=== PATIENT | male | born 1970 | race Caucasian/White ===

== ENCOUNTER 2017-04-26 22:53 | Observation (INO) | payer OTHER ==
[~2017-04-26] VITALS: Ht 182.9 cm; Wt 115.0 kg
[~2017-04-26 22:53] MED LIST: ALBU8I INH; HYCO5UDC PO; ZOFR4TAB3 PO
[2017-04-26 23:09] VITALS: BP 140/85; PULSE 98; RESP 19; TEMP 98.3; O2SAT 96
[2017-04-26] MEDS ORDERED: SODIUM CHLOR 0.9% 1000 ML INJ 1,000 ML IV ONE (23:09)
[2017-04-26 23:15] VITALS: RESP 19; O2SAT 96
[2017-04-26] MEDS ORDERED: SODIUM CHLORIDE 0.9% FLUSH 10 ML FLUSH IVF PRN (23:15)
[2017-04-26] MEDS ORDERED: LISI-515 PO (23:19)
[2017-04-26] MEDS ORDERED: CLON1TAB PO (23:19)
[2017-04-26] MEDS ORDERED: AMLO5TAB2 PO (23:19)
[2017-04-26 23:41] LABS: AUTOMATED NEUTROPHIL # 5.8 TH/MM3 (1.8-7.7); BASOPHIL # 0.1 TH/MM3 (0-0.2); BASOPHIL % 0.7 % (0.0-2.0); EOSINOPHIL # 0.3 TH/MM3 (0-0.4); HEMATOCRIT 45.3 % (39.0-51.0); HEMOGLOBIN 15.9 GM/DL (13.0-17.0); LYMPH % 33.6 % (9.0-44.0); LYMPHOCYTE # 3.4 TH/MM3 (1.0-4.8); MEAN CELL VOLUME 89.3 FL (80.0-100.0); MEAN CORPUSCULAR HEMOGLOBIN 31.3 PG (27.0-34.0); MEAN CORPUSCULAR HGB CONC 35.1 % (32.0-36.0); MEAN PLATELET VOLUME 8.9 FL (7.0-11.0); MONO % 6.5 % (0.0-8.0); MONOCYTE # 0.7 TH/MM3 (0-0.9); NEUT % 56.2 % (16.0-70.0); PLATELET COUNT 189 TH/MM3 (150-450); RED BLOOD COUNT 5.08 MIL/MM3 (4.50-5.90); WHITE BLOOD COUNT 10.3 TH/MM3 (4.0-11.0)
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
[2017-04-27 00:02] LABS: ALBUMIN 3.9 GM/DL (3.4-5.0); ALT (GPT) 49 U/L (12-78); AST (GOT) 43 U/L (15-37); BICARBONATE 26.9 MEQ/L (21.0-32.0); BLOOD UREA NITROGEN 6 MG/DL (7-18); CALCIUM 8.7 MG/DL (8.5-10.1); CHLORIDE 108 MEQ/L (98-107); CREATININE 0.92 MG/DL (0.60-1.30); GLOMERULAR FILTRATION RATE 89 ML/MIN (>89); GLUCOSE,RANDOM 103 MG/DL (74-106); SODIUM (NA) 143 MEQ/L (136-145)
[2017-04-27 00:04] LABS: ALKALINE PHOSPHATASE 93 U/L (45-117); TOTAL BILIRUBIN ADULT 0.4 MG/DL (0.2-1.0); TOTAL PROTEIN 7.6 GM/DL (6.4-8.2)
[2017-04-27 00:11] VITALS: BP 133/82; PULSE 104; RESP 16; O2SAT 95
[2017-04-27 00:13] LABS: ACETAMINOPHEN LESS THAN 2.0 MCG/ML (10.0-30.0)
[2017-04-27] MEDS ORDERED: ACTIVATED CHARCOAL LIQUID 25 GM/120 ML BTL PO/NG ONE (00:15)
[2017-04-27] MEDS ORDERED: SODIUM CHLORIDE 0.9% FLUSH 10 ML FLUSH IVF PRN (00:15)
[2017-04-27] MEDS ORDERED: LORazepam 2 MG/ML VIAL IV PUSH ONE (00:30)
[2017-04-27] MEDS ORDERED: SODIUM CHLOR 0.9% 1000 ML INJ 1,000 ML IV SCH (01:08)
[2017-04-27 01:10] VITALS: BP 127/78; PULSE 101; RESP 16; O2SAT 95
[2017-04-27] MEDS ORDERED: ONDANSETRON HCL 4 MG/2 ML VIAL IVP PRN (01:15)
[2017-04-27] MEDS ORDERED: SENNOSIDES 8.6 MG TAB PO PRN (01:15)
[2017-04-27] MEDS ORDERED: MAGNESIUM HYDROXIDE SUSP 30 ML CUP PO PRN (01:15)
[2017-04-27] MEDS ORDERED: ACETAMINOPHEN 325 MG TAB PO PRN (01:15)
[2017-04-27] MEDS ORDERED: LACTULOSE SYRUP 20 GM/30 ML CUP PO PRN (01:15)
[2017-04-27] MEDS ORDERED: SODIUM CHLORIDE 0.9% FLUSH 10 ML FLUSH IV FLUSH PRN (01:15)
[2017-04-27] MEDS ORDERED: BISACODYL 10 MG SUPP RECTAL PRN (01:15)
--- NOTE | 2017-04-27 02:58 | RADRPT ---
EXAM DATE/TIME: 04/27/2017 02:42 [facility] COMPARISON: No previous studies available for comparison. INDICATIONS : Altered mental status. RADIATION DOSE: 39.32 CTDIvol (mGy) MEDICAL HISTORY : Non-responsive. SURGICAL HISTORY : Non-responsive. ENCOUNTER: Initial ACUITY: 1 day PAIN SCALE: Non-responsive LOCATION: cranial TECHNIQUE: Multiple contiguous axial images were obtained of the head. Using automated exposure control and adj ustment of the mA and/or kV according to patient size, radiation dose was kept as low as reasonably a chievable to obtain optimal diagnostic quality images. DICOM format image data is available electro nically for review and comparison. FINDINGS: CEREBRUM: The ventricles are normal for age. No evidence of midline shift, mass lesion, hemorrhage or acute in farction. No extra-axial fluid collections are seen. POSTERIOR FOSSA: The cerebellum and brainstem are intact. The 4th ventricle is midline. The cerebellopontine angle i s unremarkable. EXTRACRANIAL: The visualized portion of the orbits is intact. Mucosal thickening in the paranasal sinuses. SKULL: The calvaria is intact. No evidence of skull fracture. Small left parietal scalp laceration. CONCLUSION: 1. No acute intracranial abnormalities. Small left parietal scalp hematoma. Pansinus mucosal thickeni ng. Pelon Tello MD on April 27, 2017 at 2:54 Board Certified Radiologist. This report was verified electronically.
--- NOTE | 2017-04-27 04:08 | HHI.HP ---
[facility] Unknown Admission Diagnosis intentional overdose/BA Diagnoses: (1) Intentional overdose of drug in tablet form Diagnosis: Principal (2) Alcohol intoxication Diagnosis: Principal (3) Cocaine abuse Diagnosis: Principal Travel History International Travel<30 Days: No Contact w/Intl Traveler <30 Da: No Traveled to Known Affected Are: No History of Present Illness This is a 46-year-old male with a PMH of Anxiety, Depression, Tobacco Abuse and Cocaine Abuse was brought to the ER by Police Department under Arguello Act for intentional overdose. Per records, pt had reported taking over 50 pills of a combination of Lisinopril 20mg, Norvasc 5mg and Klonopin 1mg, unknown quantities of each. On arrival, pt significantly agitated/combative, requiring restraints. BP 140/85, HR 98, O2 sat 96% on RA, Afebrile. CBC unremarkable. Chemistry essentially unremarkable. Urine Drug Screen positive for Cocaine. Alcohol 150. CT Head with no acute findings, small left parietal scalp hematoma. Poison control contacted, recommended observation in light of overdose. Review of Systems Except as stated in HPI: all other systems reviewed are Neg ROS: Unable to obtain secondary to sedation Past Family Social History Past Medical History PMH: Anxiety, Depression, Tobacco Abuse and Cocaine Abuse Past Surgical History PAST SURGICAL HISTORY: Dental Surgery, Abdominal Surgery Allergies: Coded Allergies: codeine (Unverified Allergy, Severe, Anaphylaxis, 04/26/17) Family History PAST FAMILY HISTORY: Reviewed. No h/o DM or CAD Social History PAST SOCIAL HISTORY: Positive for alcohol, unable to quantify. Smokes 1ppd. + Cocaine/Marijuana. Physical Exam Vital Signs Vital Signs Date Time Temp Pulse Resp B/P (MAP) Pulse Ox O2 Delivery O2 Flow Rate FiO2 04/27/17 01:10 101 16 127/78 (94) 95 04/27/17 00:11 104 16 133/82 (99) 95 04/26/17 23:15 19 96 Room Air 04/26/17 23:09 98.3 98 19 140/85 (103) 96 Physical Exam PE: GENERAL: Middle-aged white male in mild to moderate distress, in restraints, writhing around HEENT: PERRLA, EOMI. No scleral icterus or conjunctival pallor. No lid lag or facial droop. CARDIOVASCULAR: Regular rate and rhythm. No obvious murmurs to auscultation. No chest tenderness to palpation. RESPIRATORY: No obvious rhonchi or wheezing. Clear to auscultation. Breath sounds equal bilaterally. GASTROINTESTINAL: Abdomen soft, non-tender, nondistended. BS normal. MUSCULOSKELETAL: Extremities without clubbing, cyanosis, or edema. No obvious deformities. NEUROLOGICAL: Lethargic due to sedation, agitated when aroused. No focal neurologic deficits. Moving both upper and lower extremities spontaneously. Laboratory Laboratory Tests Test 04/26/17 23:15 04/26/17 23:25 Urine Opiates Screen NEG Urine Barbiturates Screen NEG Urine Amphetamines Screen NEG Urine Benzodiazepines Screen NEG Urine Cocaine Screen POS Urine Cannabinoids Screen NEG White Blood Count 10.3 Red Blood Count 5.08 Hemoglobin 15.9 Hematocrit 45.3 Mean Corpuscular Volume 89.3 Mean Corpuscular Hemoglobin 31.3 Mean Corpuscular Hemoglobin Concent 35.1 Red Cell Distribution Width 14.0 Platelet Count 189 Mean Platelet Volume 8.9 Neutrophils (%) (Auto) 56.2 Lymphocytes (%) (Auto) 33.6 Monocytes (%) (Auto) 6.5 Eosinophils (%) (Auto) 3.0 Basophils (%) (Auto) 0.7 Neutrophils # (Auto) 5.8 Lymphocytes # (Auto) 3.4 Monocytes # (Auto) 0.7 Eosinophils # (Auto) 0.3 Basophils # (Auto) 0.1 CBC Comment DIFF FINAL Differential Comment Blood Urea Nitrogen 6 Creatinine 0.92 Random Glucose 103 Total Protein 7.6 Albumin 3.9 Calcium Level 8.7 Alkaline Phosphatase 93 Aspartate Amino Transf (AST/SGOT) 43 Alanine Aminotransferase (ALT/SGPT) 49 Total Bilirubin 0.4 Sodium Level 143 Potassium Level 3.6 Chloride Level 108 Carbon Dioxide Level 26.9 Anion Gap 8 Estimat Glomerular Filtration Rate 89 Salicylates Level LESS THAN 1.7 Acetaminophen Level LESS THAN 2.0 Ethyl Alcohol Level 150 Result Diagram: 04/26/17232404/26/172324 Caprini VTE Risk Assessment Caprini VTE Risk Assessment: No/Low Risk (score <= 1) Caprini Risk Assessment Model Point Value = 1 Point Value = 2 Point Value = 3 Point Value = 5 Age 41-60 Minor surgery BMI > 25 kg/m2 Swollen legs Varicose veins or History of unexplained or recurrent spontaneous Oral contraceptives or hormone replacement Sepsis (< 1 month) Serious lung disease, including pneumonia (< 1 month) Abnormal pulmonary function Acute myocardial infarction Congestive heart failure (< 1 month) History of inflammatory bowel disease Medical patient at bed rest Age 61-74 Arthroscopic surgery Major open surgery (> 45 min) Laparoscopic surgery (> 45 min) Malignancy Confined to bed (> 72 hours) Immobilizing plaster cast Central venous access Age >= 75 History of VTE Family history of VTE Factor V Leiden Prothrombin [id number] Lupus anticoagulant Anticardiolipin antibodies Elevated serum homocysteine Heparin-induced thrombocytopenia Other congenital or acquired thrombophilia Stroke (< 1 month) Elective arthroplasty Hip, pelvis, or leg fracture Acute spinal cord injury (< 1 month) Prophylaxis Regimen Total Risk Factor Score Risk Level Prophylaxis Regimen 0-1 Low Early ambulation 2 Moderate Order ONE of the following: *Sequential Compression Device (SCD) *Heparin 5000 units SQ BID 3-4 Higher Order ONE of the following medications: *Heparin 5000 units SQ TID *Enoxaparin/Lovenox 40 mg SQ daily (WT < 150 kg, CrCl > 30 mL/min) *Enoxaparin/Lovenox 30 mg SQ daily (WT < 150 kg, CrCl > 10-29 mL/min) *Enoxaparin/Lovenox 30 mg SQ BID (WT < 150 kg, CrCl > 30 mL/min) AND/OR *Sequential Compression Device (SCD) 5 or more Highest Order ONE of the following medications: *Heparin 5000 units SQ TID (Preferred with Epidurals) *Enoxaparin/Lovenox 40 mg SQ daily (WT < 150 kg, CrCl > 30 mL/min) *Enoxaparin/Lovenox 30 mg SQ daily (WT < 150 kg, CrCl > 10-29 mL/min) *Enoxaparin/Lovenox 30 mg SQ BID (WT < 150 kg, CrCl > 30 mL/min) AND *Sequential Compression Device (SCD) Assessment and Plan Problem List: (1) Intentional overdose of drug in tablet form ICD Code: T50.902A - Poisoning by unspecified drugs, medicaments and biological substances, intentional self-harm, initialencounter Status: Acute (2) Alcohol intoxication ICD Code: F10.929 - Alcohol use, unspecified with intoxication, unspecified (3) Cocaine abuse ICD Code: F14.10 - Cocaine abuse, uncomplicated Assessment and Plan A/P: 1. Intentional Overdose: reports taking over 50 pills, combination of Lisinopril 20mg, Norvasc 5mg and Klonopin 1mg, exact quantities of each unknown. +Suicide Attempt, currently under Arguello Act. Consult Psych. Admit for Observation, telemetry to eval for possible arrhythmia. IVF for hydration. CT Head w/ no acute findings, images reviewed by me. 2. Alcohol Intoxication: Alcohol 150, daily intake unknown. Will monitor closely for possible withdrawal. IVF for hydration 3. Cocaine Abuse: Ativan prn if needed. 4. DVT Prophylaxis: SCD/Teds. 5. Social work for DC planning as needed. 6. Case discussed at length with ER physician, labs/imaging/records reviewed by me. Amanda Rai MD Apr 27, 2017 04:07
[2017-04-27 04:40] VITALS: BP 102/62; PULSE 89; RESP 20; TEMP 97.6; O2SAT 92
[2017-04-27 08:00] VITALS: BP 105/65; PULSE 86; RESP 18; TEMP 97.9; O2SAT 93
[2017-04-27] MEDS ORDERED: SODIUM CHLORIDE 0.9% FLUSH 10 ML FLUSH IV FLUSH SCH (09:00)
[2017-04-27] MEDS ORDERED: DOCUSATE SODIUM 50 MG/SENNA 8.6 MG TAB PO SCH (09:00)
--- NOTE | 2017-04-27 10:55 | PD.PSY.CON ---
Provisional Diagnosis Admission Date Apr 27, 2017 at 00:41 Chandler I. Major depressive disorder, recurrent, severe, history of schizophrenia, alcohol and cocaine use disorder, rule out substance-induced mood disorder Chandler II. Deferred Chandler III. No significant medical history History of Present Illness Service Psychiatry Consult Requested By ER team Reason for Consult Suicidal attempts, Arguello act Primary Care Physician Unknown HPI The patient is a 46-year-old man, domiciled with parents in [place], single, employed in construction, psychiatric history of depression, anxiety, alcohol and cocaine use disorder, previous psychiatric hospitalizations , multiple ER contacts related with substance issues, medical history of hypertension, who was brought to the ER by Police Department under Argu[place] Act for intentional overdose. Per records, pt had reported taking over 50 pills of a combination of Lisinopril 20mg, Norvasc 5mg and Klonopin 1mg, unknown quantities of each. On arrival, pt significantly agitated/combative, requiring restraints an ETO's. At this moment BP 140/85, HR 98, O2 sat 96% on RA, Afebrile. CBC unremarkable. Chemistry essentially unremarkable. Urine Drug Screen positive for Cocaine. Alcohol 150. CT Head with no acute findings, small left parietal scalp hematoma. Poison control contacted, recommended observation in light of overdose. Patient has been consulted to psychiatry to address suicidal attempt. Chart was reviewed, case discussed with nurse in charge. On psychiatric evaluation today patient is irritable, guarded and oppositional. Patient stated that he overdosed with multiple pills because he wanted to . He is states multiple times that he doesn't want to live anymore. He refuses to elaborate about the circumstances that led to the suicidal attempt and emotions and potential symptoms of depression. In his private of persistent inquiry and reassurance the patient says that he doesn't want to talk about. When I asked him if he is taking any psychotropics, he says that he was prescribed with medications in half-way, but he doesn't elaborate about what medications alcohol and he was incarcerated. Patient seems to be quite sedated to due to recent ETO due to agitation and aggressive behavior in the ER. He does report using alcohol every day, as well as cocaine. Review of Systems Constitutional: DENIES: Diaphoretic episodes, Fatigue, Fever, Weight gain, Weight loss, Chills, Dizziness, Change in appetite, Night Sweats Endocrine: DENIES: Heat/cold intolerance, Polydipsia, Polyuria, Polyphagia Eyes: DENIES: Blurred vision, Diplopia, Eye inflammation, Eye pain, Vision loss , Photosensitivity, Double Vision Ears, nose, mouth, throat: DENIES: Tinnitus, Hearing loss, Vertigo, Nasal discharge, Oral lesions, Throat pain, Hoarseness, Ear Pain, Running Nose, Epistaxis, Sinus Pain, Toothache, Odynophagia Respiratory: DENIES: Apneas, Cough, Snoring, Wheezing, Hemoptysis, Sputum production, Shortness of breath Cardiovascular: DENIES: Chest pain, Palpitations, Syncope, Dyspnea on Exertion , PND, Lower Extremity Edema, Orthopnea, Claudication Gastrointestinal: DENIES: Abdominal pain, Black stools, Bloody stools, Constipation, Diarrhea, Nausea, Vomiting, Difficulty Swallowing, Anorexia Genitourinary: DENIES: Sexual dysfunction, Urinary frequency, Urinary incontinence, Urgency, Hematuria, Dysuria, Nocturia, Penile Discharge, Testicular Pain, Testicular Swelling Musculoskeletal: DENIES: Joint pain, Muscle aches, Stiffness, Joint Swelling, Back pain, Neck pain Hematologic/lymphatic: DENIES: Bruising, Lymphadenopathy Immunologic/allergic: DENIES: Eczema, Urticaria Neurologic: DENIES: Abnormal gait, Headache, Localized weakness, Paresthesias, Seizures, Speech Problems, Tremor, Poor Balance Psychiatric: COMPLAINS OF: Confusion, Depression, Suicidal Ideation Past Family Social History Coded Allergies: codeine (Unverified Allergy, Severe, Anaphylaxis, 04/26/17) Reported Medications Amlodipine (Amlodipine) 5 Mg Tab, 5 MG PO DAILY for Blood Pressure Management, # 30 TAB 0 Refills 04/26/17 Clonazepam (Clonazepam) 1 Mg Tab, 1 MG PO BID, #60 TAB 0 Refills 04/26/17 Lisinopril (Lisinopril) 20 Mg Tab, 20 MG PO DAILY, #30 TAB 0 Refills 04/26/17 Current Medications Medications (Trade) Dose Ordered Sig/Kenna Route Start Time Stop Time Status Last Admin Sodium Chloride 1,000 ml @ 100 mls/hr Q10H IV 04/27/17 01:08 04/27/17 02:22 (NS Flush) 2 ml UNSCH PRN IV FLUSH 04/27/17 01:15 (NS Flush) 2 ml BID IV FLUSH 04/27/17 09:00 (Zofran Inj) 4 mg Q6H PRN IVP 04/27/17 01:15 (Tylenol) 650 mg Q6H PRN PO 04/27/17 01:15 (Manuela-Colace) 1 tab BID PO 04/27/17 09:00 (Milk Of Magnesia Liq) 30 ml Q12H PRN PO 04/27/17 01:15 (Senokot) 17.2 mg Q12H PRN PO 04/27/17 01:15 (Dulcolax Supp) 10 mg DAILY PRN RECTAL 04/27/17 01:15 (Lactulose Liq) 30 ml DAILY PRN PO 04/27/17 01:15 Family Psych History Patient denies family psychiatric history Social History Patient was born and raised in [place], he lives in [place] with his parents, single, employed in construction, his highest level of education is high school Patient's Strengths (min. 2) Under observation Physical Exam Patient is sedated, with marked psychomotor retardation, no withdrawal observed Vital Signs Vital Signs Date Time Temp Pulse Resp B/P (MAP) Pulse Ox O2 Delivery O2 Flow Rate FiO2 04/27/17 08:00 97.9 86 18 105/65 (78) 93 04/26/17 23:15 Room Air Lab Results Test 04/26/17 23:15 04/26/17 23:25 Urine Opiates Screen NEG Urine Barbiturates Screen NEG Urine Amphetamines Screen NEG Urine Benzodiazepines Screen NEG Urine Cocaine Screen POS Urine Cannabinoids Screen NEG White Blood Count 10.3 TH/MM3 Red Blood Count 5.08 MIL/MM3 Hemoglobin 15.9 GM/DL Hematocrit 45.3 % Mean Corpuscular Volume 89.3 FL Mean Corpuscular Hemoglobin 31.3 PG Mean Corpuscular Hemoglobin Concent 35.1 % Red Cell Distribution Width 14.0 % Platelet Count 189 TH/MM3 Mean Platelet Volume 8.9 FL Neutrophils (%) (Auto) 56.2 % Lymphocytes (%) (Auto) 33.6 % Monocytes (%) (Auto) 6.5 % Eosinophils (%) (Auto) 3.0 % Basophils (%) (Auto) 0.7 % Neutrophils # (Auto) 5.8 TH/MM3 Lymphocytes # (Auto) 3.4 TH/MM3 Monocytes # (Auto) 0.7 TH/MM3 Eosinophils # (Auto) 0.3 TH/MM3 Basophils # (Auto) 0.1 TH/MM3 CBC Comment DIFF FINAL Differential Comment Blood Urea Nitrogen 6 MG/DL Creatinine 0.92 MG/DL Random Glucose 103 MG/DL Total Protein 7.6 GM/DL Albumin 3.9 GM/DL Calcium Level 8.7 MG/DL Alkaline Phosphatase 93 U/L Aspartate Amino Transf (AST/SGOT) 43 U/L Alanine Aminotransferase (ALT/SGPT) 49 U/L Total Bilirubin 0.4 MG/DL Sodium Level 143 MEQ/L Potassium Level 3.6 MEQ/L Chloride Level 108 MEQ/L Carbon Dioxide Level 26.9 MEQ/L Anion Gap 8 MEQ/L Estimat Glomerular Filtration Rate 89 ML/MIN Salicylates Level LESS THAN 1.7 MG/DL Acetaminophen Level LESS THAN 2.0 MCG/ML Ethyl Alcohol Level 150 MG/DL Mental Status Examination Appearance: Appropriate Consciousness: Alert Orientation: x4 Motor Activity: Normal gait Speech: Unremarkable Language: Adequate Fund of Knowledge: Adequate Attention and Concentration: Adequate Memory: Unremarkable Mood: Sad, Oppositional Affect: Irritable, Sad Thought Process & Associations: Intact Thought Content: Appropriate Hallucination Type: None Delusion Type: None Suicidal Ideation: Yes Suicidal Plan: Yes Suicidal Intention: Yes Homicidal Ideation: No Homicidal Plan: No Homicidal Intention: No Insight: Poor Judgment: Poor Assessment & Plan Problem List: (1) Major depressive disorder, recurrent ICD Codes: F33.9 - Major depressive disorder, recurrent, unspecified Assessment & Plan: On psychiatric evaluation the patient is oppositional, resistant, is also a little bit sedated after a recent ETO due to agitation and aggressiveness in the ER. Patient has tried to commit suicide by overdosing with 50 pills of different medications, as per Arguello act. The patient is reluctant to speak about the circumstances and emotions behind his suicidal attempt. Patient has history of substance use disorder, sustained use mood disorder, he was positive for cocaine and alcohol in his arrival to the ER. Patient has also history of previous suicidal attempts, anxiety and depression. At this moment he poses an elevated risk of danger to himself and he needs to be admitted in psychiatry for stabilization and safety. Please transfer to psychiatry once medically stable. Continue CIWA protocol. No additional psychotropics indicated at this moment. Assessment & Plan Estimated LOS: Poncho Oconnor MD Apr 27, 2017 10:55
--- NOTE | 2017-04-27 11:39 | HHI.DCPOC ---
Discharge Care Plan Diagnosis: (1) Intentional overdose of drug in tablet form (2) Alcohol intoxication (3) Cocaine abuse (4) Major depressive disorder, recurrent Goals to Promote Your Health * To prevent worsening of your condition and complications * To maintain your health at the optimal level Directions to Meet Your Goals Take your medications as prescribed Follow your dietary instruction Follow activity as directed Keep your appointments as scheduled Take your immunizations and boosters as scheduled If your symptoms worsen call your PCP, if no PCP go to Urgent Care Center or Emergency Room Smoking is Dangerous to Your Health. Avoid second hand smoke Call the 24-hour hour crisis hotline for domestic abuse at Leila Jurado PA-C Apr 27, 2017 11:39 am
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
[2017-04-27 12:00] VITALS: BP 117/68; PULSE 78; RESP 18; TEMP 97.7; O2SAT 96
[2017-04-27] MEDS ORDERED: NICOTINE 21 MG/24 HR PATCH T-DERMAL SCH (12:00)
[2017-04-27] MEDS ORDERED: REMOVE OLD PATCH T-DERMAL SCH (12:00)
[2017-04-27 16:00] VITALS: BP 119/75; PULSE 95; RESP 18; TEMP 98.2; O2SAT 97
--- NOTE | 2017-04-27 19:46 | EKG ---
Date Performed: 04/26/2017 Time Performed: 23:15:39 PTAGE: 46 years EKG: Sinus rhythm LOW QRS VOLTAGE IN PRECORDIAL LEADS INCOMPLETE RIGHT BUNDLE BRANCH BLOCK Since previous tracing, no significant change noted BORDERLINE ECG PREVIOUS TRACING : 10/19/2004 10.40.02 DOCTOR: Toñito Cheung Interpretating Date/Time 04/27/2017 19:45:33
== END 2017-04-27 18:26 ==
LOC: NEPE 22:53 → NEDA 04-27 00:41 → NEDH 04-27 11:39
PROVIDERS: ADMIT Hospitalist; ATTEND Hospitalist
DX: T42.4X2A Poisoning by benzodiazepines, intentional self-harm, initial encounter (principal); T46.4X2A Poisoning by angiotensin-converting-enzyme inhibitors, intentional self-harm, initial encounter; F10.129 Alcohol abuse with intoxication, unspecified; F14.10 Cocaine abuse, uncomplicated; Y90.6 Blood alcohol level of 120-199 mg/100 ml; F33.9 Major depressive disorder, recurrent, unspecified; Z78.1 Physical restraint status
CPT/HCPCS: 70450; 80053; 80307; 85025; 93005; 96360; 96361; 99285; G0378; J2060; J7030

== ENCOUNTER 2017-04-27 16:28 | Inpatient (IN) | payer SELFPAY ==
[~2017-04-27] VITALS: Ht 182.9 cm; Wt 101.0 kg
[~2017-04-27 16:28] MED LIST changes: -ALBU8I INH; +AMLO5TAB2 PO; +CLON1TAB PO; -HYCO5UDC PO; +LISI-515 PO; -ZOFR4TAB3 PO
[2017-04-27 18:56] VITALS: BP 164/80; PULSE 98; RESP 16; TEMP 98.3; O2SAT 98
[2017-04-27] MEDS ORDERED: ALUMINUM/MAGNESIUM/SIMETH 30 ML CUP PO PRN (19:45)
[2017-04-27] MEDS: NICOTINE 21 MG/24 HR PATCH T-DERMAL SCH (19:45)
[2017-04-27] MEDS ORDERED: ACETAMINOPHEN 325 MG TAB PO PRN (19:45)
[2017-04-27] MEDS ORDERED: LORazepam 2 MG/ML VIAL IM PRN ×2 (19:45)
[2017-04-27] MEDS ORDERED: LORazepam 0.5 MG TAB PO PRN (19:45)
[2017-04-27] MEDS ORDERED: MAGNESIUM HYDROXIDE SUSP 30 ML CUP PO PRN (19:45)
[2017-04-27] MEDS ORDERED: LORazepam 2 MG/ML VIAL ONE (19:49)
[2017-04-27] MEDS ORDERED: HALOPERIDOL LACTATE 5 MG/ML AMP ONE (19:50)
[2017-04-27] MEDS ORDERED: HALOPERIDOL LACTATE 5 MG/ML AMP IM ONE (20:00)
[2017-04-27] MEDS ORDERED: LORazepam 2 MG/ML VIAL IM ONE (20:00)
[2017-04-27] MEDS: REMOVE OLD NICODERM (NICOTINE) PATCH T-DERMAL SCH (21:00)
[2017-04-28 05:40] VITALS: BP 115/55; PULSE 83; RESP 18; TEMP 98.1; O2SAT 95
[2017-04-28 08:02] LABS: BICARBONATE 28.7 MEQ/L (21.0-32.0); BLOOD UREA NITROGEN 13 MG/DL (7-18); CALCIUM 8.5 MG/DL (8.5-10.1); CHLORIDE 106 MEQ/L (98-107); GLUCOSE,RANDOM 91 MG/DL (74-106); SODIUM (NA) 142 MEQ/L (136-145)
[2017-04-28 08:10] LABS: CHOLESTEROL 106 MG/DL (120-200); CHOLESTEROL/ HDL RATIO 3.16 RATIO; CREATININE 0.81 MG/DL (0.60-1.30); GLOMERULAR FILTRATION RATE 103 ML/MIN (>89); HDL CHOLESTEROL 33.5 MG/DL (40.0-60.0); LDL CHOLESTEROL 58 MG/DL (0-99); TRIGLYCERIDES 71 MG/DL (42-150)
[2017-04-28] MEDS: NICOTINE 21 MG/24 HR PATCH T-DERMAL SCH (09:00)
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
[2017-04-28] MEDS ORDERED: HALOPERIDOL LACTATE 5 MG/ML AMP ONE (11:20)
[2017-04-28] MEDS ORDERED: diphenhydrAMINE HCL 50 MG/ML VIAL ONE (11:20)
[2017-04-28] MEDS ORDERED: HALOPERIDOL LACTATE 5 MG/ML AMP IM ONE (12:00)
[2017-04-28] MEDS ORDERED: diphenhydrAMINE HCL 50 MG/ML VIAL IM ONE (12:00)
[2017-04-28] MEDS ORDERED: LORazepam 2 MG/ML VIAL IM ONE (12:00)
[2017-04-28 16:38] LABS: HEMOGLOBIN A1C 5.7 % (4.3-6.0)
[2017-04-28 17:46] VITALS: BP 121/59; PULSE 82; RESP 19; TEMP 98.7; O2SAT 96
[2017-04-28] MEDS: LORazepam 1 MG TAB PO PRN (19:45)
[2017-04-28] MEDS: carBAMazepine 200 MG TAB PO SCH (20:35)
[2017-04-28] MEDS: REMOVE OLD NICODERM (NICOTINE) PATCH T-DERMAL SCH (21:00)
[2017-04-29] MEDS: LORazepam 1 MG TAB PO PRN ×2 (02:05→07:49)
[2017-04-29 05:39] VITALS: BP 129/75; PULSE 77; RESP 18; TEMP 99; O2SAT 98
[2017-04-29] MEDS: carBAMazepine 200 MG TAB PO SCH (07:48)
[2017-04-29] MEDS: NICOTINE 21 MG/24 HR PATCH T-DERMAL SCH (07:48)
[2017-04-29] MEDS ORDERED: CARB200T PO (12:31)
--- NOTE | 2017-04-29 12:31 | HHI.DS ---
Psychiatry Discharge Summary Inpatient Psychiatric care?: Yes Advance Directive: No Reason Not Provided: Provided to patient Mental Health AdvanceDirective: No Health Care Proxy: No Admission Admission Date Apr 27, 2017 at 18:34 Admission Diagnosis: (1) Adjustment disorder with mixed disturbance of emotions and conduct ICD Code: F43.25 - Adjustment disorder with mixed disturbance of emotions and conduct (2) Polysubstance abuse ICD Code: F19.10 - Other psychoactive substance abuse, uncomplicated Brief History Mr. Beatty is a 46-year-old male with reported history of depression or perhaps schizophrenia who presents in transfer from the medical observation unit under a Arguello act. Patient presented initially to emergency department following reported polydrug overdose on benzodiazepine and antihypertensive. Of note, patient's urine toxicology was negative for benzodiazepine, and the patient did not experience a significant hypotensive reaction. Patient was seen in psychiatric consultation by Dr. Xavier. Reviewing the electronic medical record, I note that patient was seen most recently in consultation in 2014 by nurse practitioner Charisse with a diagnosis of alcohol-induced mood disorder. Patient seen and examined with nurse. Chart reviewed. Case discussed with nursing staff. 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 He now says that he did not make an overdose, or at least made an overdose of far smaller magnitude than he had initially alleged, perhaps a few pills. He says of the overdose, "it was a fake out. I didn't eat 'em all." He says that he simulated this overdose because he was distressed because he had violated curfew and relapsed to alcohol in violation of his parole; additionally, he says that he was seeking attention from his mother. He denies any suicidal or homicidal ideation now. He says that he would not hurt himself because "my parents need me. I need to stop being so selfish." He does seem to struggle with impulse control, although following the interview he is able to request medications from the nurse to avert an outburst when he learns he will not be leaving the hospital today. Mood is anxious, but I can elicit no depressive or hypomanic/manic symptoms. He denies any AVH and in particular denies any CAH. Antisocial personality traits are noted. Remainder of the psychiatric ROS is negative. The patient has no physical complaints. Past psychiatric history: The patient reports previous diagnoses as noted above. Chart history is chiefly one of drug-induced mood disorder as I said. He says that he recently established outpatient care at [facility], although nurse has called over to [facility] and patient only went for his initial visit and was prescribed no medications. Patient reports that his most recent psychiatric admission was several years ago at [facility]. He endorses a history of previous suicide attempts by cutting and also he tried to hang himself once. He also endorses a history of violent behavior in the past. With the patient's permission, I did obtain collateral information from his mother Susan Méndez at [phone]. She feels patient is "not ready to come home. " She insists that she saw patient ingest 3 bottles of pills. I suggest to mother that she secure the home of all potential means of harm including but not limited to guns, knives and medications in advance of patient's eventual return home. I also student services counselor mother regarding Jesús Act and Saundra Act/ex parte to get patient to treatment for chem dep and general mental health, respectively. Unclear how committed mother is to patient's case as she says in reply after I have counseled her "he's got a helicopter officer now, I don't have to do anything. Tobacco Use In Past 30 Days: 5 or More Cigarettes/Day Alcohol Use: 4 or More Times Per Week Hospital Course Patient was admitted to a locked, inpatient psychiatric unit. A general medical consultation was obtained, and the patient was medically cleared prior to discharge. Appropriate precautions were in place throughout patient's hospital stay. Patient was seen and examined on the unit by psychiatry and visited by counselor. There has been no evidence of any suicidality or homicidality on the inpatient unit. Patient's behavior has improved during period of observation. Counselor has obtained additional collateral from the patient's mother to the effect that she is now comfortable having the patient return home on the day of discharge. On the day of discharge: Patient seen and examined with nurse. Chart reviewed. Case discussed with nursing staff. No reported behavioral issues overnight. Case discussed with counselor. On my examination today, the patient is requesting discharge from the inpatient psychiatric unit today. He remains fairly childlike. He insists that he has several matters that he must take care of, chiefly related to aftercare following his release from skilled nursing. He is future oriented. He denies any suicidal or homicidal ideation, intent or plan on direct questioning and contracts for safety. I can elicit no depressive or hypomanic/manic symptoms. He denies any audiovisual hallucinations. I can elicit no delusional material. There is no evidence of any impairment in reality construction. Antisocial personality traits remain. He denies side effects from carbamazepine, although he is lukewarm about continuing this medication. He says that he will most likely follow-up with his outpatient mental health provider and pursue pharmacotherapy based on that provider's recommendation. We do discuss the need to obtain a carbamazepine level on an outpatient basis should he decide to remain on this agent. He has no physical complaints. Suicide and violence risk assessment on day of discharge both suggest lower imminent risk, and the patient's level of function is adequate for outpatient care. I do suspect patient's antisocial personality style confers chronic risk but not acute or imminent risk, and this factor would not be ameliorated by a longer inpatient psychiatric hospital stay. Patient's substance use also confers chronic risk, but the patient reiterates his commitment to pursuing outpatient chemical dependency treatment, chiefly through 12 step programming. The patient does not meet criteria for involuntary psychiatric hospitalization. His Arguello act will shortly , and I have no basis to initiate a petition for involuntary psychiatric hospitalization. I will arrange for the patient's discharge home today with psychiatric follow-up as arranged by counselor. Patient is also to follow-up with primary care. I counseled the patient to return to the psychiatric emergency room for any concerning psychiatric symptoms as part of a general safety plan. Results Blood Pressure 129 / 75 Vital Signs Date Time Temp Pulse Resp B/P (MAP) Pulse Ox O2 Delivery O2 Flow Rate FiO2 04/29/17 05:39 99.0 77 18 129/75 (93) 98 Laboratory Tests Test 04/28/17 05:45 04/29/17 11:43 Cholesterol Level 106 MG/DL (120-200) HDL Cholesterol 33.5 MG/DL (40.0-60.0) Laboratory Results Test 04/28/17 05:45 Cholesterol Level 106 MG/DL (120-200) HDL Cholesterol 33.5 MG/DL (40.0-60.0) Hemoglobin A1c 5.7 % (4.3-6.0) LDL Cholesterol 58 MG/DL (0-99) Triglycerides Level 71 MG/DL (42-150) Summary of Procedures None done Imaging None done Pending results at discharge: No Medications # of Antipsychotic meds at D/C: 0 Approp Antipsych med options 1 - Minimum of three failed multiple trials of monotherapy. 2 - Documented plan to taper to monotherapy due to previous use of multiple meds OR cross-taper in progress at D/C. 3 - Documentation of augmentation of Clozapine. 4 - Justification other than those listed in allowable values 1-3, document here : Discharge Discharge Date: Apr 29, 2017 Discharge Diagnosis: (1) Adjustment disorder with mixed disturbance of emotions and conduct Diagnosis: Principal (resolved) ICD Code: F43.25 - Adjustment disorder with mixed disturbance of emotions and conduct (2) Polysubstance abuse Diagnosis: Secondary (counseled to quit) ICD Code: F19.10 - Other psychoactive substance abuse, uncomplicated Pt Condition on Discharge: Stable Discharge Disposition: Discharge Home Discharge Instructions Diet Instructions: As Tolerated, No Restrictions Activities you can perform: Weight Bearing as Telma Scheduled Appointment: as per counselor's notes New Medications: Carbamazepine (Carbamazepine) 200 Mg Tab 200 MG PO Q12HR for Mental Health for 7 Days, TAB 3 Refills Discontinued Medications: Clonazepam (Clonazepam) 1 Mg Tab 1 MG PO BID, #60 TAB 0 Refills Discharge Time > 30 minutes Mental Status Examination Appearance: Appropriate Consciousness: Alert Orientation: x4 Motor Activity: Normal gait, Other (no motor abnormalities noted. No signs of withdrawal noted.) Speech: Unremarkable Language: Adequate Fund of Knowledge: Adequate (fair) Attention and Concentration: Adequate (fair) Memory: Unremarkable Mood: Appropriate Affect: Other (somewhat childlike but generally appropriate) Thought Process & Associations: Intact Thought Content: Appropriate Hallucination Type: None Delusion Type: None Suicidal Ideation: No Suicidal Plan: No Suicidal Intention: No Homicidal Ideation: No Homicidal Plan: No Homicidal Intention: No Insight: Poor (likely chronic condition) Judgment: Impulsive (likely chronic condition) Discharge/Advance Care Plan Health Problems: (1) Adjustment disorder with mixed disturbance of emotions and conduct (2) Polysubstance abuse Goals to promote your health * To prevent worsening of your condition and complications * To maintain your health at the optimal level Directions to meet your goals Take your medications as prescribed Follow your dietary instruction Follow activity as directed Keep your appointments as scheduled Take your immunizations and boosters as scheduled If your symptoms worsen call your PCP, if no PCP go to Urgent Care Center or Emergency Room For 20/10 questions related to your inpatient stay or results of tests pending at discharge, please contact Dr. Cody Garner at Smoking is Dangerous to Your Health. Avoid second hand smoking Cody Garner MD Apr 29, 2017 12:31
[2017-04-29 12:59] LABS: ALBUMIN 3.9 GM/DL (3.4-5.0); ALKALINE PHOSPHATASE 111 U/L (45-117); ALT (GPT) 41 U/L (12-78); AST (GOT) 34 U/L (15-37); BICARBONATE 31.6 MEQ/L (21.0-32.0); BLOOD UREA NITROGEN 11 MG/DL (7-18); CALCIUM 9.9 MG/DL (8.5-10.1); CHLORIDE 102 MEQ/L (98-107); CREATININE 0.92 MG/DL (0.60-1.30); GLOMERULAR FILTRATION RATE 89 ML/MIN (>89); GLUCOSE,RANDOM 88 MG/DL (74-106); SODIUM (NA) 139 MEQ/L (136-145); TOTAL BILIRUBIN ADULT 0.3 MG/DL (0.2-1.0); TOTAL PROTEIN 8.1 GM/DL (6.4-8.2)
--- NOTE | 2017-04-29 13:27 | PD.CONS ---
HPI Service [facility] Hospitalists Consult Requested By Psychiatry Reason for Consult Medical management Primary Care Physician No Primary Care Physician Diagnoses: History of Present Illness Mr. Beatty is a pleasant 46-year-old male with a history of anxiety, depression, tobacco abuse, cocaine abuse who was admitted to the hospital under Arguello act for intentional overdose. Patient reportedly to 50 pills of a combination of lisinopril, Norvasc, clonidine. He was initially admitted to the medical observation unit and he was evaluated by psychiatry. Psychiatry recommended inpatient psych admission. Patient was subsequently discharged to psychiatry unit on 04/27/2017. Hospitalist service was consulted for medical management, medical clearance. At the time of this interview, patient denies any acute chest pain, shortness of breath, fever or chills. He denies any acute medical concerns. He denies any suicidal or homicidal ideations. Review of Systems Except as stated in HPI: all other systems reviewed are Neg Past Family Social History Allergies: Coded Allergies: codeine (Unverified Allergy, Severe, Anaphylaxis, 04/26/17) Past Medical History Anxiety, Depression, Tobacco Abuse and Cocaine Abuse Past Surgical History Dental Surgery, Abdominal Surgery Reported Medications Current Medications Medications (Trade) Dose Ordered Sig/Kenna Route Start Time Stop Time Status Last Admin (Ativan) 1 mg Q6H PRN PO 04/27/17 19:45 04/29/17 07:49 (Ativan Inj) 1 mg Q6H PRN IM 04/27/17 19:45 (Tylenol) 650 mg Q4H PRN PO 04/27/17 19:45 (Milk Of Magnesia Liq) 30 ml DAILY PRN PO 04/27/17 19:45 (Mag-Al Plus Susp Liq) 30 ml Q6H PRN PO 04/27/17 19:45 (Habitrol 21 Mg Patch.24 Hr) 1 patch DAILY T-DERMAL 04/27/17 19:45 04/29/17 07:48 Miscellaneous Information 1 HS T-DERMAL 04/27/17 21:00 04/28/17 21:00 (TEGretol) 200 mg Q12HR PO 04/28/17 21:00 04/29/17 07:48 Family History No family history of diabetes mellitus or coronary artery disease. Social History Positive for alcohol, unable to quantify. Smokes 1ppd. +Cocaine/Marijuana. Physical Exam Vital Signs Vital Signs Date Time Temp Pulse Resp B/P (MAP) Pulse Ox O2 Delivery O2 Flow Rate FiO2 04/29/17 05:39 99.0 77 18 129/75 (93) 98 04/28/17 17:46 98.7 82 19 121/59 (79) 96 Physical Exam GENERAL: This is a well-nourished, well-developed patient, in no apparent distress. SKIN: No rashes, ecchymoses or lesions. Warm and dry. HEAD: Atraumatic. Normocephalic. No temporal or scalp tenderness. EYES: Pupils equal round and reactive. No injection or drainage. ENT: Nose without bleeding, purulent drainage or septal hematoma. Airway patent. NECK: Trachea midline. No lymphadenopathy. Supple, nontender, no meningeal signs. CARDIOVASCULAR: Regular rate and rhythm without murmurs, gallops, or rubs. No JVD. RESPIRATORY: Clear to auscultation. Breath sounds equal bilaterally. No wheezes , rales, or rhonchi. GASTROINTESTINAL: Abdomen soft, non-tender, nondistended. No guarding. MUSCULOSKELETAL: Extremities without clubbing, cyanosis, or edema. NEUROLOGICAL: Awake and alert. Cranial nerves II through XII intact. No focal neurological deficits. Normal speech. Laboratory Laboratory Tests Test 04/29/17 11:43 Blood Urea Nitrogen 11 Creatinine 0.92 Random Glucose 88 Total Protein 8.1 Albumin 3.9 Calcium Level 9.9 Alkaline Phosphatase 111 Aspartate Amino Transf (AST/SGOT) 34 Alanine Aminotransferase (ALT/SGPT) 41 Total Bilirubin 0.3 Sodium Level 139 Potassium Level 4.6 Chloride Level 102 Carbon Dioxide Level 31.6 Anion Gap 5 Estimat Glomerular Filtration Rate 89 Thyroid Stimulating Hormone 3rd Gen 0.992 Result Diagram: 04/29/17 1143 Assessment and Plan Problem List: (1) Polysubstance abuse ICD Code: F19.10 - Other psychoactive substance abuse, uncomplicated (2) Major depressive disorder, recurrent ICD Code: F33.9 - Major depressive disorder, recurrent, unspecified Assessment and Plan Mr. Beatty is a pleasant 46-year-old male with a history of polysubstance abuse who was admitted on 04/27/2017 due to intentional overdose. Patient was initially managed in the observation unit. After psychiatry evaluation he was transferred to psychiatry unit. Hospitalist service was consulted for medical management, medical clearance. - Polysubstance abuse - Cocaine abuse - Tobacco abuse - Patient is counseled again regarding substance abuse. Patient appears to be motivated to quit substance abuse including tobacco abuse. - Major depressive disorder - Continue management per psychiatry. Patient denies any suicidal or homicidal ideations. - Currently patient is hemodynamically stable. No acute medical concerns. Patient can be discharged from medical standpoint. Thank you for the consult. Should you have any question, please feel free to contact us. Farnaz Garrido DO Apr 29, 2017 1:27 pm
== END 2017-04-29 13:40 | disposition home or self-care (01) | DRG 882 ==
LOC: H260 18:34 → H270 20:11
PROVIDERS: ADMIT Psychiatry & Neurology Psychiatry; ATTEND Psychiatry & Neurology Psychiatry
DX: F43.25 Adjustment disorder with mixed disturbance of emotions and conduct (principal); F33.9 Major depressive disorder, recurrent, unspecified; F60.2 Antisocial personality disorder; R45.87 Impulsiveness; R41.83 Borderline intellectual functioning; F17.210 Nicotine dependence, cigarettes, uncomplicated; F14.10 Cocaine abuse, uncomplicated; F12.10 Cannabis abuse, uncomplicated; Z62.810 Personal history of physical and sexual abuse in childhood; Z81.1 Family history of alcohol abuse and dependence; Z81.8 Family history of other mental and behavioral disorders; Z88.5 Allergy status to narcotic agent; Z91.5 Personal history of self-harm
CPT/HCPCS: 80048; 80053; 80061; 83036; 84443; J1200; J1630; J2060

== ENCOUNTER 2017-12-13 01:49 | Inpatient (IN) ==
[2017-12-13] MEDS ORDERED: Vancomycin Inj 1,000 MG in Sodium Chlor 0.9% Inj 250 ML IV.SIG STA (04:28)
[2017-12-13] MEDS ORDERED: Piperacil/Tazo 4.5 GM Premix 4.5 GM/100 ML BAG IV.SIG STA (04:28)
--- NOTE | 2017-12-13 04:46 | ED ---
HPI General Chief complaint: Skin/Abscess/Foreign Body Stated complaint: Fever Time Seen by Provider: 12/13/17 04:21 History of Present Illness HPI narrative: This is a 47-year-old male with a history of IV methamphetamine use, presents today with complaints of abscesses to his left and right forearm. Patient also reports feeling warm with chills. Patient states that he knows he has a problem and needs help to try and stop using drugs. The patient has previous history of abscesses. Patient also has a history of hepatitis C. He reports his last tetanus shot was within 5 years. There is no headache or neck or back pain. There are no other complaints at time of examination. Related Data Home Medications Medication Instructions Recorded Confirmed No Known Home Medications 12/13/17 12/13/17 Allergies Allergy/AdvReac Type Severity Reaction Status Date / Time codeine Allergy Severe Anaphylaxis Verified 12/13/17 01:52 Review of Systems Constitutional Reports chills and Reports fever(s) Eyes Reports system reviewed and no additional complaints, except as docu ENT Reports system reviewed and no additional complaints, except as docu Cardiovascular Denies chest pain and Denies dyspnea Respiratory Denies chest congestion, Denies cough and Denies dyspnea Gastrointestinal Denies abdominal pain, Reports nausea and Denies vomiting Genitourinary Reports system reviewed and no additional complaints, except as docu Musculoskeletal Denies back pain, Denies numbness, Denies tingling and Reports other (Pain and abscesses to the left upper and right upper extremity.) Integumentary/Breasts Reports changing lesions (Abscesses to the left upper extremity and right upper extremity) and Reports skin ulcer (Right upper extremity) Neurologic Denies headache(s), Denies sensory deficit, Denies paresthesias and Denies weakness PMFSH Social History Social History Substance History: Active Abuse Second Hand Smoke Exposure: Yes Smoking Status: Current every day smoker Tobacco Type: Cigarettes How Often Do You Have a Drink Containing Alcohol: 2 to 4 times a month Recent Travel in [facility] within the Last 8 Weeks: No Recent Out of Country Travel within the Last 8 Weeks: No Substance Abuse Detail Other: Substance Use Status: Active Route Used Substance Abuse: Intravenously Reason for Use: Feels Good Marijuana: Substance Use Status: Active Route Used Substance Abuse: By Mouth Reason for Use: Feels Good Immunization History Tetanus Immunization: Unsure Hx Influenza Vaccine This Season: No Exam Narrative Exam Narrative: GENERAL: Well-developed well-nourished male who is shaking with chills. SKIN: Focused skin assessment warm/dry. HEAD: Atraumatic. Normocephalic. EYES: No scleral icterus. No injection or drainage. ENT: No nasal bleeding or discharge. Mucous membranes pink and moist. NECK: Trachea midline. Supple. CARDIOVASCULAR: Heart rate in the high 90s with sinus rhythm. No murmur appreciated. RESPIRATORY: No accessory muscle use. Clear to auscultation. Breath sounds equal bilaterally. GASTROINTESTINAL: Abdomen soft, non-tender, nondistended. MUSCULOSKELETAL: No obvious deformities. No clubbing. No cyanosis. No edema. There is a punctate draining ulceration on his right medial forearm. There is also a slight raised area lateral to his forearm that could be an early abscess. On examination the patient's left forearm, there are multiple raised tender erythematous lesions consistent with abscesses. There was fluctuant in 3 of them. There was also tenderness and induration on another. NEUROLOGICAL: Awake and alert. No obvious cranial nerve deficits. Motor grossly within normal limits. Normal speech. Course Initial Documented Vital Signs Temperature 99.9 F H 12/13/17 01:52 Pulse Rate 115 H 12/13/17 01:52 Respiratory Rate 18 12/13/17 01:52 Blood Pressure 171/98 H 12/13/17 01:52 Pulse Oximetry 99 12/13/17 01:52 Last Documented Vital Signs Temperature 99.9 F H 12/13/17 01:52 Pulse Rate 99 H 12/13/17 04:18 Respiratory Rate 20 12/13/17 04:18 Blood Pressure 159/95 H 12/13/17 04:18 Pulse Oximetry 95 12/13/17 04:18 Medical Decision Making [facility] Narrative Medical decision making narrative: 47-year-old male presents with subjective fever and chills. Patient also has multiple abscesses from IV drug abuse. His temperature is 99.9. Pulse rate is in the high 90s and was rated at 99 on my exam. He has had the fluctuant abscesses I indeed by Alicia macdonald, DNP. He has been started on vancomycin and Zosyn. Cultures for blood and wound have been sent off. Case was discussed with Dr. Rai, [facility], who will admit the patient for IV antibiotics. Medical Screen Exam Complete: Yes Emergency Medical Condition: Yes Differential Diagnosis Differential Diagnosis: Infected abscesses versus cellulitis versus bacteremia versus IV drug use Lab Data Result diagrams: 12/13/17 04:40 12/13/17 04:40 Lab Results 12/13/17 12/13/17 12/13/17 Range/Units 04:40 04:40 04:40 WBC 7.4 (4.0-11.0) th/mm3 RBC 4.39 L (4.50-5.90) mil/mm3 Hgb 14.6 (13.0-17.0) gm/dL Hct 41.5 (39.0-51.0) % MCV 94.6 (80.0-100.0) fL MCH 33.3 (27.0-34.0) pg MCHC 35.2 (32.0-36.0) % RDW 13.6 (11.6-17.2) % Plt Count 204 (150-450) th/mm3 MPV 8.1 (7.0-11.0) fL Neut % (Auto) 78.2 H (16.0-70.0) % Lymph % (Auto) 14.2 (9.0-44.0) % [place] % (Auto) 6.0 (0.0-8.0) % Eos % (Auto) 1.2 (0.0-4.0) % Baso % (Auto) 0.4 (0.0-2.0) % Neut # (Auto) 5.8 (1.8-7.7) th/mm3 Lymph # (Auto) 1.0 (1.0-4.8) th/mm3 [place] # (Auto) 0.4 (0.0-0.9) th/mm3 Eos # (Auto) 0.1 (0.0-0.4) th/mm3 Baso # (Auto) 0.0 (0.0-0.2) th/mm3 WBC Differential . Differential Comment Auto diff final Sodium 138 (136-145) meq/L Potassium 3.8 (3.5-5.1) meq/L Chloride 98 (98-107) meq/L Carbon Dioxide 31.0 (21.0-32.0) meq/L Anion Gap 9 (5-15) meq/L BUN 9 (7-18) mg/dL Creatinine 1.20 (0.60-1.30) mg/dL Estimated GFR 65 L (>89) mL/min Random Glucose 90 (74-106) mg/dL Lactic Acid 1.2 (0.4-2.0) mmol/L Calcium 8.7 (8.5-10.1) mg/dL Total Bilirubin 0.6 (0.2-1.0) mg/dL AST 46 H (15-37) U/L ALT 33 (12-78) U/L Alkaline Phosphatase 86 (45-117) U/L Total Protein 7.4 (6.4-8.2) g/dL Albumin 3.1 L (3.4-5.0) g/dL Imaging Data Radiologist's impression: Chest X-Ray 12/13/17 04:26 CONCLUSION: 1. No acute cardiopulmonary disease. Discharge Plan Discharge Disposition Patient Disposition: 30 Still Patient Discharge Details Diagnosis: Sepsis affecting skin, Abscess of right upper extremity, Abscess of left upper extremity, Active intravenous drug use Physicians Team ED Provider: Donato Brooks ED Midlevel Provider: Alicia Gates Primary Care Provider: Primary Care Marisela Johnston Attending Provider: Amanda Rai Discharge Interventions Interventions: Vital Signs Last Done: 12/13/17 04:18 Status ED Status: Admitted Patient
[2017-12-13] MEDS ORDERED: Ketorolac Inj 30 MG/ML (IVP) Vial IV.PUSH ONE ×2 (05:09→05:29)
[2017-12-13 05:12] LABS: Baso % (Auto) 0.4 % (0.0-2.0); Eos # (Auto) 0.1 th/mm3 (0.0-0.4); Eos % (Auto) 1.2 % (0.0-4.0); Hematocrit 41.5 % (39.0-51.0); Hemoglobin 14.6 gm/dL (13.0-17.0); Lymph % (Auto) 14.2 % (9.0-44.0); Mean Corpuscular HGB Conc 35.2 % (32.0-36.0); Mean Corpuscular Hemoglobin 33.3 pg (27.0-34.0); Mean Corpuscular Volume 94.6 fL (80.0-100.0); Mean Platelet Volume 8.1 fL (7.0-11.0); Mono # (Auto) 0.4 th/mm3 (0.0-0.9); Neut # (Auto) 5.8 th/mm3 (1.8-7.7); Neut % (Auto) 78.2 % (16.0-70.0); Platelet Count 204 th/mm3 (150-450); Red Blood Count 4.39 mil/mm3 (4.50-5.90); Red Cell Distribution Width 13.6 % (11.6-17.2); White Blood Count 7.4 th/mm3 (4.0-11.0)
[2017-12-13] MEDS ORDERED: HYDROmorphone PF Inj 2 MG/ML Vial IV.PUSH ONE (05:30)
[2017-12-13 05:38] LABS: Alkaline Phosphatase 86 U/L (45-117); Total Protein 7.4 g/dL (6.4-8.2)
--- NOTE | 2017-12-13 05:44 | XR ---
EXAM DATE: 12/13/2017 5:18 AM EDT AGE/SEX: 47 years / Male INDICATIONS: Fever. CLINICAL DATA: This is the patient's initial encounter. Patient reports that signs and symptoms have been present for 1 day and indicates a pain score of 0/10. MEDICAL/SURGICAL HISTORY: None. None. COMPARISON: [facility] [place], CHEST SINGLE AP, 04/08/2015. . FINDINGS: A single AP view of the chest demonstrates the lungs to be symmetrically aerated without evidence of mass, infiltrate or effusion. The cardiomediastinal contours are unremarkable. Osseous structures a re intact. CONCLUSION: 1. No acute cardiopulmonary disease. Electronically signed by: Manish Walker MD 12/13/2017 5:42 AM EDT
[2017-12-13 05:45] LABS: Alanine Aminotransferase 33 U/L (12-78); Albumin 3.1 g/dL (3.4-5.0); Anion Gap 9 meq/L (5-15); Aspartate Aminotransferase 46 U/L (15-37); Blood Urea Nitrogen 9 mg/dL (7-18); Calcium 8.7 mg/dL (8.5-10.1); Chloride 98 meq/L (98-107); Glomerular Filtration Rate 65 mL/min (>89); Glucose,Random 90 mg/dL (74-106); Sodium 138 meq/L (136-145)
[2017-12-13 05:46] LABS: Potassium 3.8 meq/L (3.5-5.1)
[2017-12-13] MEDS ORDERED: Vancomycin Consult Pharmacy OTHER PRN (05:47)
[2017-12-13] MEDS ORDERED: Bisacodyl 10 MG Supp RECTAL PRN (05:48)
[2017-12-13] MEDS ORDERED: Sod Chloride 0.9% Inj 1,000 ML IV.CONT SCH (06:00)
[2017-12-13] MEDS: Senna/Docusate Sodium 8.6/50 MG Tablet PO SCH ×2 (09:30→21:05)
[2017-12-13] MEDS: Piperacil/Tazo 4.5 GM Premix 4.5 GM/100 ML BAG IV.SIG SCH ×3 (10:03→22:17)
[2017-12-13] MEDS: Acetaminophen 325 MG Tablet PO PRN ×2 (10:14→17:56)
--- NOTE | 2017-12-13 11:38 | P.HP ---
History of Present Illness Primary Care Physician: No Primary Care Physician Chief Complaint: painful Bilateral arms History of Present Illness: 47-year-old man with recurrent history of IVDU presented to the ED yesterday for evaluation of bilateral arms pain and swelling. The pain was rated over 8 in intensity prior to admission. Patient admits injected to his arms. Currently uses IV methamphetamine. States over the past few days he notices swelling abscesses to both his forearms. He complained of subjective fevers at home prior to coming to the hospital. He underwent I&D in the emergency department. This a.m., patient reported improvement of bilateral pain and swelling. However, patient is currently febrile without any leukocytosis. - Diagnosis (1) Abscess of right upper extremity (2) Abscess of left upper extremity (3) Active intravenous drug use Inpatient Certification: I certify that the inpatient services were ordered in accordance with Medicare regulations governing the order. This includes certification that hospital inpatient services are reasonable and necessary and in the case of services not specified as inpatient-only under 42 CFR 419.22(n), that they are appropriately provided as inpatient services in accordance to with the 2-midnight benchmark under 43 CFR 412.3(e) Estimated Total Length of Stay (Days): 2 Plans for Post Hospital Care: Not yet determined Review of Systems All other systems reviewed negative except as stated in HPI PMFSH - History History Provided By: Patient - Medical History Medical History: Medical History (Last Reviewed 12/13/17 @ 01:54 by Shayna Purvis) Laceration of abdominal wall Patient denies medical problems - Surgical History Surgical History: Surgical History (Last Reviewed 12/13/17 @ 01:54 by Shayna Purvis) No history of previous surgery - Family History Family History: Family History (Last Updated 12/13/17 @ 11:37 by Sandeep Diaz MD) Other No family history of cardiac disease - Tobacco History Second Hand Smoke Exposure: Yes Tobacco Use In Past 30 Days: Yes Smoking Status: Current every day smoker Tobacco Type: Cigarettes - Alcohol History How Often Do You Have a Drink Containing Alcohol: 2 to 4 times a month - Substance Use History Substance History: Active Abuse - Substance Use Type Other Status: Active Route Used: Intravenously Reason for Use: Feels Good Marijuana Status: Active Route Used: By Mouth Reason for Use: Feels Good - Travel History Recent Travel in the [facility] Within the Last 8 Weeks: No Recent Travel Out of the Country Within the Last 8 Weeks: No - Immunization History Tetanus Immunization: Unsure Hx Influenza Vaccine This Season: No Medications and Allergies Active Medications: Active Medications Acetaminophen (Tylenol) 650 mg PO Q4H PRN PRN Reason: Temp > 100.4 Last Admin: 12/13/17 10:14 Dose: 650 mg Al Hydroxide/Mg Hydroxide (Milk Of Magnesia Liq) 30 ml PO Q12H PRN PRN Reason: Mild Constipation Bisacodyl (Dulcolax Supp) 10 mg RECTAL DAILY PRN PRN Reason: SEVERE CONSITIPATION Clonidine HCl (Catapres) 0.1 mg PO Q6H PRN PRN Reason: SBP>180, DBP>100, HR>65 Last Admin: 12/13/17 09:29 Dose: 0.1 mg Piperacillin/Tazobactam/Dextrose (Zosyn 4.5 Gm Premix) 4.5 gm in 100 mls @ 200 mls/hr IV.SIG Q6H [facility] Last Infusion: 12/13/17 10:35 Dose: Infused Sodium Chloride (Ns Inj) 1,000 mls @ 100 mls/hr IV.CONT .Q10H [facility] Last Admin: 12/13/17 09:30 Dose: Not Given Vancomycin HCl 1,500 mg/ (Sodium Chloride) 515 mls @ 257.5 mls/hr IV.SIG Q12H [facility] Lactulose (Lactulose Liq) 30 ml PO DAILY PRN PRN Reason: SEVERE CONSITIPATION Lorazepam (Ativan Inj) 1 mg IV.PUSH Q4H PRN PRN Reason: AGITATION/WITHDRAWAL Miscellaneous Information ([facility] Ordered Lab Info) 0 each OTHER ONCE ONE Stop: 12/15/17 01:46 Ondansetron HCl (Zofran Inj) 4 mg IV.PUSH Q6H PRN PRN Reason: NAUSEA OR VOMITING Pharmacy Profile Note (Vancomycin Consult Pharmacy) 1 each OTHER UNSCH PRN PRN Reason: Pharmacy to dose Senna/Docusate Sodium (Manuela-Colace) 1 tab PO BID [facility]OMI Last Admin: 12/13/17 09:30 Dose: 1 tab Sennosides (Senokot) 17.2 mg PO Q12H PRN PRN Reason: Moderate Constipation Allergies Allergy/AdvReac Type Severity Reaction Status Date / Time codeine Allergy Severe Anaphylaxis Verified 12/13/17 01:52 Home Medications Medication Instructions Recorded Confirmed Type No Known Home Medications 12/13/17 12/13/17 History Exam Vital signs: Vital Signs 12/13/17 01:52 12/13/17 04:18 12/13/17 07:24 Temperature 99.9 F H Pulse Rate 115 H 99 H 102 H Respiratory Rate 18 20 Blood Pressure 171/98 H 159/95 H 136/85 Pulse Oximetry 99 95 12/13/17 08:50 12/13/17 08:58 12/13/17 10:12 Temperature 100.7 F H 102.7 F H Pulse Rate 100 H 113 H Respiratory Rate 16 Blood Pressure 205/98 H 208/110 H 186/102 H Pulse Oximetry 88 L 89 L Intake & Output 12/12/17 12/13/17 12/13/17 18:59 06:59 18:59 Intake Total 100 / 100 100 / 100 Balance 100 / 100 100 / 100 Weight 113.398 kg Intake: IV 100 / 100 100 / 100 Zosyn 4.5 GM Premix 4.5 gm In 100 / 100 100 / 100 100 ml @ 200 mls/hr IV.SIG Q6H [facility] Rx#:[id number] Narrative: GENERAL: NAD SKIN: Warm and dry. HEAD: Atraumatic. Normocephalic. EYES: Pupils equal and round. No scleral icterus. No injection or drainage. ENT: No nasal bleeding or discharge. Mucous membranes pink and moist. NECK: Trachea midline. No JVD. CARDIOVASCULAR: Regular rate and rhythm. RESPIRATORY: No accessory muscle use. Clear to auscultation. Breath sounds equal bilaterally. GASTROINTESTINAL: Abdomen soft, non-tender, nondistended. Hepatic and splenic margins not palpable. MUSCULOSKELETAL: Extremities without clubbing, cyanosis, or edema. No obvious deformities. dressing over B upper arm NEUROLOGICAL: Awake and alert. No obvious cranial nerve deficits. Motor grossly within normal limits. Five out of 5 muscle strength in the arms and legs. Normal speech. PSYCHIATRIC: Appropriate mood and affect; insight and judgment normal. Results - Labs CBC & Chem 7: 12/13/17 04:40 12/13/17 04:40 Labs: Laboratory Results - last 24 hr 12/13/17 12/13/17 12/13/17 04:40 04:40 04:40 WBC 7.4 RBC 4.39 L Hgb 14.6 Hct 41.5 MCV 94.6 MCH 33.3 MCHC 35.2 RDW 13.6 Plt Count 204 MPV 8.1 Neut % (Auto) 78.2 H Lymph % (Auto) 14.2 [place] % (Auto) 6.0 Eos % (Auto) 1.2 Baso % (Auto) 0.4 Neut # (Auto) 5.8 Lymph # (Auto) 1.0 [place] # (Auto) 0.4 Eos # (Auto) 0.1 Baso # (Auto) 0.0 WBC Differential . Differential Comment Auto diff final Sodium 138 Potassium 3.8 Chloride 98 Carbon Dioxide 31.0 Anion Gap 9 BUN 9 Creatinine 1.20 Estimated GFR 65 L Random Glucose 90 Lactic Acid 1.2 Calcium 8.7 Total Bilirubin 0.6 AST 46 H ALT 33 Alkaline Phosphatase 86 Total Protein 7.4 Albumin 3.1 L - Imaging Impressions Chest X-Ray 12/13/17 04:26 CONCLUSION: 1. No acute cardiopulmonary disease. Caprini VTE Risk Assessment Caprini VTE Risk Assessment: No/Low Risk (score <= 1) Caprini Risk Assessment Model: Point Value = 1 Point Value = 2 Point Value = 3 Point Value = 5 Age 41-60 Minor surgery BMI > 25 kg/m2 Swollen legs Varicose veins or History of unexplained or recurrent spontaneous Oral contraceptives or hormone replacement Sepsis (< 1 month) Serious lung disease, including pneumonia (< 1 month) Abnormal pulmonary function Acute myocardial infarction Congestive heart failure (< 1 month) History of inflammatory bowel disease Medical patient at bed rest Age 61-74 Arthroscopic surgery Major open surgery (> 45 min) Laparoscopic surgery (> 45 min) Malignancy Confined to bed (> 72 hours) Immobilizing plaster cast Central venous access Age >= 75 History of VTE Family history of VTE Factor V Leiden Prothrombin [id number] Lupus anticoagulant Anticardiolipin antibodies Elevated serum homocysteine Heparin-induced thrombocytopenia Other congenital or acquired thrombophilia Stroke (< 1 month) Elective arthroplasty Hip, pelvis, or leg fracture Acute spinal cord injury (< 1 month) Prophylaxis Regimen: Total Risk Factor Score Risk Level Prophylaxis Regimen 0-1 Low Early ambulation 2 Moderate Order ONE of the following: *Sequential Compression Device (SCD) *Heparin 5000 units SQ BID 3-4 Higher Order ONE of the following medications: *Heparin 5000 units SQ TID *Enoxaparin/Lovenox 40 mg SQ daily (WT < 150 kg, CrCl > 30 mL/min) *Enoxaparin/Lovenox 30 mg SQ daily (WT < 150 kg, CrCl > 10-29 mL/min) *Enoxaparin/Lovenox 30 mg SQ BID (WT < 150 kg, CrCl > 30 mL/min) AND/OR *Sequential Compression Device (SCD) 5 or more Highest Order ONE of the following medications: *Heparin 5000 units SQ TID (Preferred with Epidurals) *Enoxaparin/Lovenox 40 mg SQ daily (WT < 150 kg, CrCl > 30 mL/min) *Enoxaparin/Lovenox 30 mg SQ daily (WT < 150 kg, CrCl > 10-29 mL/min) *Enoxaparin/Lovenox 30 mg SQ BID (WT < 150 kg, CrCl > 30 mL/min) AND *Sequential Compression Device (SCD) Assessment and Plan - Assessment (1) Abscess of right upper extremity Code(s): L02.413 - Cutaneous abscess of right upper limb Status: Acute (2) Abscess of left upper extremity Code(s): L02.414 - Cutaneous abscess of left upper limb Status: Acute (3) Active intravenous drug use Code(s): F19.90 - Other psychoactive substance use, unspecified, uncomplicated Status: Acute - Plan 47-year-old man with Abscess bilateral upper extremities Status post I&D in the ED pending culture report Currently on vancomycin and Zosyn 2/2 history of IVDU, will check 2D echo Tylenol as needed for pain IVDU Extensively counseled against Check 2D echo to rule out endocarditis Hypertension Start oral antihypertensive medication Clonidine as needed Tobacco abuse Tobacco counseling cessation provided Start nicotine patch History of hepatitis C Outpatient follow-up DVT prophylaxis: Encourage ambulation
[2017-12-13 13:26] LABS: Bilirubin,Urine Negative (Negative); Clarity,Urine Clear (Clear); Color,Urine Straw (Yellw/Straw); Glucose,Urine (UA) Negative (Negative); Leukocyte Esterase,Urine Negative (Negative); Nitrite,Urine Negative (Negative); Specific Gravity,Urine 1.002 (1.002-1.035)
[2017-12-13 13:30] LABS: Amphetamine Screen,Urine Pos (Neg); Barbiturate Screen,Urine Neg (Neg); Cannabinoid Screen,Urine Pos (Neg); Cocaine Screen,Urine Pos (Neg)
[2017-12-13 13:37] LABS: Opiate Screen,Urine Neg (Neg)
[2017-12-13] MEDS: Vancomycin Inj 1,500 MG in Sodium Chlor 0.9% Inj 500 ML IV.SIG SCH (15:20)
[2017-12-14] MEDS: Vancomycin Inj 1,500 MG in Sodium Chlor 0.9% Inj 500 ML IV.SIG SCH ×2 (01:57→14:57)
[2017-12-14] MEDS: Piperacil/Tazo 4.5 GM Premix 4.5 GM/100 ML BAG IV.SIG SCH ×2 (03:59→09:46)
[2017-12-14 06:26] LABS: Baso % (Auto) 0.2 % (0.0-2.0); Eos % (Auto) 0.1 % (0.0-4.0); Hematocrit 38.4 % (39.0-51.0); Hemoglobin 13.3 gm/dL (13.0-17.0); Lymph # (Auto) 0.7 th/mm3 (1.0-4.8); Lymph % (Auto) 16.6 % (9.0-44.0); Mean Corpuscular HGB Conc 34.6 % (32.0-36.0); Mean Corpuscular Hemoglobin 32.7 pg (27.0-34.0); Mean Corpuscular Volume 94.5 fL (80.0-100.0); Mean Platelet Volume 8.4 fL (7.0-11.0); Mono # (Auto) 0.4 th/mm3 (0.0-0.9); Mono % (Auto) 9.1 % (0.0-8.0); Platelet Count 125 th/mm3 (150-450); Red Blood Count 4.07 mil/mm3 (4.50-5.90); Red Cell Distribution Width 14.2 % (11.6-17.2); White Blood Count 4.1 th/mm3 (4.0-11.0)
[2017-12-14 06:58] LABS: Alanine Aminotransferase 23 U/L (12-78); Albumin 2.5 g/dL (3.4-5.0); Alkaline Phosphatase 71 U/L (45-117); Anion Gap 9 meq/L (5-15); Aspartate Aminotransferase 21 U/L (15-37); Blood Urea Nitrogen 8 mg/dL (7-18); Calcium 8.2 mg/dL (8.5-10.1); Carbon Dioxide 29.2 meq/L (21.0-32.0); Chloride 99 meq/L (98-107); Glomerular Filtration Rate 85 mL/min (>89); Glucose,Random 105 mg/dL (74-106); Potassium 3.2 meq/L (3.5-5.1); Sodium 137 meq/L (136-145); Total Protein 6.2 g/dL (6.4-8.2)
[2017-12-14] MEDS: Senna/Docusate Sodium 8.6/50 MG Tablet PO SCH (08:35)
[2017-12-14 11:20] VITALS: O2SAT 95
--- NOTE | 2017-12-14 11:41 | ECHRPT ---
Indication: Sepsis and Possible Endocarditis CONCLUSIONS The left ventricular systolic function is normal with an estimated ejection fraction in the range of 55-60%. Normal left ventricular size and wall thickness. Limited views obtained secondary to patients inability to hold still. From the views obtained there does not appear to be evidence of vegetations or significant valvular heart disease. Would recommend JAMISON if c linical suspicion for endocarditis remains high. BP: / HR: 84 Rhythm: MEASUREMENTS (Male / Female) Normal Values Technical Quality:Fair 2D ECHO LV Diastolic Diameter PLAX 4.7 cm 4.2 - 5.9 / 3.9 - 5.3 cm LV Systolic Diameter PLAX 3.5 cm IVS Diastolic Thickness 1.1 cm 0.6 - 1.0 / 0.6 - 0.9 cm LVPW Diastolic Thickness 1.1 cm 0.6 - 1.0 / 0.6 - 0.9 cm LV Relative Wall Thickness 0.5 RV Internal Dim ED PLAX 3.7 cm LVOT Diameter 2.3 cm Aortic Root Diameter 3.5 cm LA Systolic Diameter LX 3.4 cm 3.0 - 4.0 / 2.7 - 3.8 cm DOPPLER AV Peak Velocity 119.0 cm/s AV Peak Gradient 5.7 mmHg LVOT Peak Velocity 89.8 cm/s LVOT Peak Gradient 3.2 mmHg AV Area Cont Eq pk 3.1 cm Mitral E Point Velocity 70.1 cm/s Mitral A Point Velocity 80.0 cm/s Mitral E to A Ratio 0.9 LV E' Lateral Velocity 16.4 cm/s Mitral E to LV E' Lateral Ratio 4.3 LV E' Septal Velocity 11.4 cm/s Mitral E to LV E' Septal Ratio 6.1 TR Peak Velocity 198.0 cm/s TR Peak Gradient 15.7 mmHg Right Atrial Pressure 10.0 mmHg Pulmonary Artery Systolic Pressu 25.7 mmHg Right Ventricular Systolic Press 25.7 mmHg PV Peak Velocity 111.0 cm/s PV Peak Gradient 4.9 mmHg FINDINGS LEFT VENTRICLE Normal left ventricular size. Wall thickness is normal. The left ventricular systolic function is normal with an estimated ejection fraction in the range of 55-60%. RIGHT VENTRICLE Normal right ventricular size and systolic function. LEFT ATRIUM The left atrial size is normal. RIGHT ATRIUM The right atrial size is normal. ATRIAL SEPTUM Normal atrial septal thickness without atrial level shunting by limited color doppler interrogation. AORTA The aortic root and proximal ascending aorta are normal in size on limited imaging. MITRAL VALVE Structurally normal mitral valve. No mitral valve stenosis or regurgitation. AORTIC VALVE Trileaflet aortic valve. TRICUSPID VALVE There is trace tricuspid valve regurgitation. PULMONARY VALVE Trivial pulmonary valve regurgitation. VESSELS The inferior vena cava is normal in size. PERICARDIUM No pericardial effusion. Mario Flores MD (Electronically Signed) Final Date:14 December 2017 11:39
--- NOTE | 2017-12-14 12:57 | P.PN ---
Subjective Interval history: Follow-up forearm abscesses status post I&D December 14, 2017-patient seen and examined, T-max 102 at 4 PM yesterday however currently afebrile. Denies any significant forearms pain. Physical Exam Vital signs: Vital Signs 12/13/17 16:00 12/13/17 20:00 12/14/17 00:00 Temperature 102.0 F H 98.5 F 99.9 F H Pulse Rate 99 H 96 H 89 Respiratory Rate 16 21 21 Blood Pressure 170/87 H 167/82 H 139/74 Pulse Oximetry 95 95 96 12/14/17 07:10 12/14/17 09:00 12/14/17 11:19 Temperature 99.1 F 98.9 F Pulse Rate 93 H 93 H 95 H Respiratory Rate 16 20 Blood Pressure 164/88 H 171/94 H Pulse Oximetry 94 L 95 Intake & Output 12/13/17 12/14/17 12/14/17 18:59 06:59 18:59 Intake Total 200 / 200 1230 / 1230 100 / 100 Output Total 250 / 250 Balance -50 / -50 1230 / 1230 100 / 100 Intake: IV 200 / 200 1230 / 1230 100 / 100 Zosyn 4.5 GM Premix 4.5 gm In 200 / 200 200 / 200 100 / 100 100 ml @ 200 mls/hr IV.SIG Q6H [facility] Rx#:[id number] Vancomycin Inj 1,500 MG In NS 1030 / 1030 Inj 500 ML @ 257.5 mls/hr IV. SIG Q12H [facility] Rx#:[id number] Output: Urine 250 / 250 Other: Date of Last Bowel Movement 12/13/17 12/13/17 Narrative: GENERAL: NAD SKIN: Warm and dry. Dressing over the forearms bilaterally HEAD: Normocephalic. EYES: No scleral icterus. No injection or drainage. NECK: Supple, trachea midline. No JVD or lymphadenopathy. CARDIOVASCULAR: Regular rate and rhythm without murmurs, gallops, or rubs. RESPIRATORY: Breath sounds equal bilaterally. No accessory muscle use. GASTROINTESTINAL: Abdomen soft, non-tender, nondistended. MUSCULOSKELETAL: No cyanosis, or edema. BACK: Nontender without obvious deformity. No CVA tenderness. Results - Labs CBC & Chem 7: 12/14/17 05:50 12/14/17 05:50 Laboratory Results - last 24 hr 12/13/17 12/13/17 12/14/17 13:10 13:10 05:50 WBC 4.1 RBC 4.07 L Hgb 13.3 Hct 38.4 L MCV 94.5 MCH 32.7 MCHC 34.6 RDW 14.2 Plt Count 125 L D MPV 8.4 Neut % (Auto) 74.0 H Lymph % (Auto) 16.6 [place] % (Auto) 9.1 H Eos % (Auto) 0.1 Baso % (Auto) 0.2 Neut # (Auto) 3.0 Lymph # (Auto) 0.7 L [place] # (Auto) 0.4 Eos # (Auto) 0.0 Baso # (Auto) 0.0 WBC Differential . Differential Comment Auto diff final Sodium Potassium Chloride Carbon Dioxide Anion Gap BUN Creatinine Estimated GFR Random Glucose Calcium Total Bilirubin AST ALT Alkaline Phosphatase Total Protein Albumin Urine Color Straw Urine Clarity Clear Urine pH 6.0 Ur Specific [place] 1.002 Urine Protein Negative Urine Glucose (UA) Negative Urine Ketones Negative Urine Occult Blood Negative Urine Nitrate Negative Urine Bilirubin Negative Urine Urobilinogen Less than 2 Ur Leukocyte Esterase Negative Urine RBC Less than 1 Urine WBC Less than 1 Micro UA Comment Culture not ind Ur Microscopic Review Not Reportable Urine Culture Comments Culture not ind Urine Opiates Screen Neg Ur Barbiturates Screen Neg Ur Amphetamines Screen Pos H U Benzodiazepines Scrn Neg Urine Cocaine Screen Pos H U Cannabinoids Screen Pos H 12/14/17 05:50 WBC RBC Hgb Hct MCV MCH MCHC RDW Plt Count MPV Neut % (Auto) Lymph % (Auto) [place] % (Auto) Eos % (Auto) Baso % (Auto) Neut # (Auto) Lymph # (Auto) [place] # (Auto) Eos # (Auto) Baso # (Auto) WBC Differential Differential Comment Sodium 137 Potassium 3.2 L Chloride 99 Carbon Dioxide 29.2 Anion Gap 9 BUN 8 Creatinine 0.95 Estimated GFR 85 L Random Glucose 105 Calcium 8.2 L Total Bilirubin 0.7 AST 21 ALT 23 Alkaline Phosphatase 71 Total Protein 6.2 L D Albumin 2.5 L D Urine Color Urine Clarity Urine pH Ur Specific [place] Urine Protein Urine Glucose (UA) Urine Ketones Urine Occult Blood Urine Nitrate Urine Bilirubin Urine Urobilinogen Ur Leukocyte Esterase Urine RBC Urine WBC Micro UA Comment Ur Microscopic Review Urine Culture Comments Urine Opiates Screen Ur Barbiturates Screen Ur Amphetamines Screen U Benzodiazepines Scrn Urine Cocaine Screen U Cannabinoids Screen Microbiology 12/13/17 04:48 Blood - Peripheral Aerobic Blood Culture - Preliminary No growth in 1 day 12/13/17 04:48 Blood - Peripheral Anaerobic Blood Culture - Preliminary Group A beta Strep 12/13/17 04:30 Blood - Peripheral Aerobic Blood Culture - Preliminary No growth in 1 day 12/13/17 04:30 Blood - Peripheral Anaerobic Blood Culture - Preliminary No growth in 1 day 12/13/17 04:55 Abscess - Arm Gram Stain - Final Assessment and Plan - Assessment (1) Abscess of right upper extremity Code(s): L02.413 - Cutaneous abscess of right upper limb Status: Acute (2) Abscess of left upper extremity Code(s): L02.414 - Cutaneous abscess of left upper limb Status: Acute (3) Active intravenous drug use Code(s): F19.90 - Other psychoactive substance use, unspecified, uncomplicated Status: Acute - Plan 47-year-old man with Abscess bilateral upper extremities Status post I&D in the ED pending culture report Forearm wound culture pending 1#4 BC positive for GBS, likely contaminant however will repeat blood culture Currently on vancomycin and Zosyn 2D echo of vegetation Tylenol as needed for pain IVDU Extensively counseled against 2D echo ruled out vegetation Hypertension Continue oral antihypertensive medication Clonidine as needed Hypokalemia Give potassium 60 mEq p.o. 1 now and monitor electrolyte Tobacco abuse Tobacco counseling cessation provided Continue nicotine patch History of hepatitis C Outpatient follow-up DVT prophylaxis: Encourage ambulation
[2017-12-14 13:19] VITALS: BP 153/91; PULSE 88; RESP 18; TEMP 98.2
--- NOTE | 2017-12-14 15:52 | P.DS ---
Date of admission: 12/13/17 05:50 Primary care physician: No Primary Care Physician Anticipated date of discharge: 12/14/17 Brief History from admission: 47-year-old man with recurrent history of IVDU presented to the ED yesterday for evaluation of bilateral arms pain and swelling. The pain was rated over 8 in intensity prior to admission. Patient admits injected to his arms. Currently uses IV methamphetamine. States over the past few days he notices swelling abscesses to both his forearms. He complained of subjective fevers at home prior to coming to the hospital. He underwent I&D in the emergency department. This a.m., patient reported improvement of bilateral pain and swelling. However, patient is currently febrile without any leukocytosis. DS: Diagnosis - Discharge Diagnosis (1) Abscess of right upper extremity Status: Acute (2) Abscess of left upper extremity Status: Acute (3) Active intravenous drug use Status: Acute DS: Summary Hospital Course: While in hospital, prior to signing AMA patient was treated for: Abscess bilateral upper extremities Status post I&D in the ED pending culture report Forearm wound culture pending 1#4 BC positive for GBS, likely contaminant however will repeat blood culture Currently on vancomycin and Zosyn 2D echo of vegetation Tylenol as needed for pain IVDU Extensively counseled against 2D echo ruled out vegetation Hypertension Continue oral antihypertensive medication Clonidine as needed Hypokalemia Give potassium 60 mEq p.o. 1 now and monitor electrolyte Tobacco abuse Tobacco counseling cessation provided Continue nicotine patch History of hepatitis C Outpatient follow-up DVT prophylaxis: Encourage ambulation - Time Spent with Patient Total time spent providing and/or coordinating discharge services: Less than 30 minutes - Quality: VTE Deep Vein Thrombosis/Pulmonary Embolism Present on Admission: No Exam Vital signs: Vital Signs 12/13/17 16:00 12/13/17 20:00 12/14/17 00:00 Temperature 102.0 F H 98.5 F 99.9 F H Pulse Rate 99 H 96 H 89 Respiratory Rate 16 21 21 Blood Pressure 170/87 H 167/82 H 139/74 Pulse Oximetry 95 95 96 12/14/17 07:10 12/14/17 09:00 12/14/17 11:19 Temperature 99.1 F 98.9 F Pulse Rate 93 H 93 H 95 H Respiratory Rate 16 20 Blood Pressure 164/88 H 171/94 H Pulse Oximetry 94 L 95 12/14/17 13:18 Temperature 98.2 F Pulse Rate 88 Respiratory Rate 18 Blood Pressure 153/91 H Pulse Oximetry 95 Intake & Output 12/13/17 12/14/17 12/14/17 18:59 06:59 18:59 Intake Total 200 / 200 1230 / 1230 100 / 100 Output Total 250 / 250 Balance -50 / -50 1230 / 1230 100 / 100 Intake: IV 200 / 200 1230 / 1230 100 / 100 Zosyn 4.5 GM Premix 4.5 gm In 200 / 200 200 / 200 100 / 100 100 ml @ 200 mls/hr IV.SIG Q6H [facility] Rx#:[id number] Vancomycin Inj 1,500 MG In NS 1030 / 1030 Inj 500 ML @ 257.5 mls/hr IV. SIG Q12H [facility] Rx#:[id number] Output: Urine 250 / 250 Other: Date of Last Bowel Movement 12/13/17 12/13/17 Results Procedures completed during hospitalization: none Labs on day of discharge: Labs from last 24 hours 12/14/17 12/14/17 05:50 05:50 WBC 4.1 RBC 4.07 L Hgb 13.3 Hct 38.4 L MCV 94.5 MCH 32.7 MCHC 34.6 RDW 14.2 Plt Count 125 L D MPV 8.4 Neut % (Auto) 74.0 H Lymph % (Auto) 16.6 [place] % (Auto) 9.1 H Eos % (Auto) 0.1 Baso % (Auto) 0.2 Neut # (Auto) 3.0 Lymph # (Auto) 0.7 L [place] # (Auto) 0.4 Eos # (Auto) 0.0 Baso # (Auto) 0.0 WBC Differential . Differential Comment Auto diff final Sodium 137 Potassium 3.2 L Chloride 99 Carbon Dioxide 29.2 Anion Gap 9 BUN 8 Creatinine 0.95 Estimated GFR 85 L Random Glucose 105 Calcium 8.2 L Total Bilirubin 0.7 AST 21 ALT 23 Alkaline Phosphatase 71 Total Protein 6.2 L D Albumin 2.5 L D Preliminary micro results at discharge 12/13/17 04:55 Wound Culture - Preliminary Abscess - Arm Group A beta Strep S. aureus MRSA 12/13/17 04:48 Aerobic Blood Culture - Preliminary Blood - Peripheral No growth in 1 day Anaerobic Blood Culture - Preliminary Group A beta Strep 12/13/17 04:30 Aerobic Blood Culture - Preliminary Blood - Peripheral No growth in 1 day Anaerobic Blood Culture - Preliminary No growth in 1 day - Impressions ITS Impressions Chest X-Ray 12/13/17 04:26 CONCLUSION: 1. No acute cardiopulmonary disease. Discharge Plan - Discharge Disposition Patient Disposition: 07 Against Medical Advice - Discharge Order Discharge Orders: AMA Discharge (Routine); Ordered 12/14/17 Ordered By: Sandeep Diaz - Physicians Team Primary Care Provider: Primary Care Marisela Johnston Attending Provider: Sadneep Diaz
[2017-12-15] MEDS ORDERED: Pharmacy Ordered Lab Info OTHER ONE (01:45)
== END 2017-12-14 16:48 | disposition left against medical advice (07) ==
LOC: NEPE 01:49 → NEDA 05:50 → NEPHCDU 07:32 → N05 12-14 12:44
PROVIDERS: ADMIT Hospitalist; ATTEND Hospitalist

== ENCOUNTER 2018-01-02 01:47 | Observation (INO) ==
[2018-01-02] MEDS ORDERED: Sod Chloride 0.9% Inj 1,000 ML IV.SIG ONE (01:50)
[2018-01-02 02:33] LABS: Baso % (Auto) 0.3 % (0.0-2.0); Eos % (Auto) 0.2 % (0.0-4.0); Hematocrit 44.4 % (39.0-51.0); Hemoglobin 15.7 gm/dL (13.0-17.0); Lymph # (Auto) 1.6 th/mm3 (1.0-4.8); Lymph % (Auto) 13.6 % (9.0-44.0); Mean Corpuscular HGB Conc 35.5 % (32.0-36.0); Mean Corpuscular Hemoglobin 33.3 pg (27.0-34.0); Mean Corpuscular Volume 93.9 fL (80.0-100.0); Mean Platelet Volume 8.9 fL (7.0-11.0); Mono % (Auto) 8.6 % (0.0-8.0); Neut # (Auto) 9.3 th/mm3 (1.8-7.7); Neut % (Auto) 77.3 % (16.0-70.0); Platelet Count 175 th/mm3 (150-450); Red Blood Count 4.73 mil/mm3 (4.50-5.90); Red Cell Distribution Width 14.3 % (11.6-17.2)
[2018-01-02 02:48] LABS: Alanine Aminotransferase 21 U/L (12-78); Albumin 3.2 g/dL (3.4-5.0); Anion Gap 5 meq/L (5-15); Aspartate Aminotransferase 18 U/L (15-37); Blood Urea Nitrogen 5 mg/dL (7-18); Calcium 8.6 mg/dL (8.5-10.1); Carbon Dioxide 28.6 meq/L (21.0-32.0); Chloride 97 meq/L (98-107); Glomerular Filtration Rate Greater Than 89 mL/min (>89); Glucose,Random 117 mg/dL (74-106); Potassium 3.6 meq/L (3.5-5.1); Sodium 131 meq/L (136-145)
[2018-01-02 02:51] LABS: Alkaline Phosphatase 77 U/L (45-117); Total Protein 7.8 g/dL (6.4-8.2)
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
[2018-01-02] MEDS ORDERED: Lisinopril 10 MG Tablet PO ONE (05:28)
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
[2018-01-02 06:28] LABS: Creatine Kinase 103 U/L (39-308)
[2018-01-02] MEDS: Sod Chloride 0.9% Inj 1,000 ML IV.CONT SCH ×3 (08:43→23:47)
[2018-01-02 10:41] LABS: Creatine Kinase 50 U/L (39-308)
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
--- NOTE | 2018-01-02 13:04 | ECG ---
Date Performed: 01/02/2018 Time Performed: 09:16:47 PTAGE: 47 years EKG: Sinus rhythm NORMAL ECG INTERPRETATION BASED ON A DEFAULT AGE OF 41 YEARS NO PREVIOUS TRACING DOCTOR: Anu Pizarro Interpretating Date/Time 01/02/2018 13:02:33
--- NOTE | 2018-01-02 13:06 | ECG ---
Date Performed: 01/02/2018 Time Performed: 05:51:16 PTAGE: 47 years EKG: Sinus rhythm POSSIBLE RIGHT VENTRICULAR CONDUCTION DELAY BORDERLINE ECG PREVIOUS TRACING : 01/02/2018 01.59 DOCTOR: Anu Pizarro Interpretating Date/Time 01/02/2018 13:03:43
--- NOTE | 2018-01-02 13:09 | ECG ---
Date Performed: 01/02/2018 Time Performed: 01:59:16 PTAGE: 47 years EKG: SINUS TACHYCARDIA POSSIBLE RIGHT VENTRICULAR CONDUCTION DELAY ABNORMAL RHYTHM ECG PREVIOUS TRACING : 04/26/2017 23.15 DOCTOR: Anu Pizarro Interpretating Date/Time 01/02/2018 13:07:34
[2018-01-02] MEDS: Ketorolac Inj 30 MG/ML (IVP) Vial IV.PUSH PRN (23:45)
[2018-01-03] MEDS: Ketorolac Inj 30 MG/ML (IVP) Vial IV.PUSH PRN (06:18)
[2018-01-03] MEDS: Sod Chloride 0.9% Inj 1,000 ML IV.CONT SCH ×2 (07:14→10:52)
[2018-01-03 07:27] VITALS: RESP 18
[2018-01-03 07:27] LABS: Baso % (Auto) 0.2 % (0.0-2.0); Eos % (Auto) 0.4 % (0.0-4.0); Hematocrit 39.3 % (39.0-51.0); Hemoglobin 13.9 gm/dL (13.0-17.0); Lymph # (Auto) 1.3 th/mm3 (1.0-4.8); Mean Corpuscular HGB Conc 35.4 % (32.0-36.0); Mean Corpuscular Volume 93.2 fL (80.0-100.0); Mean Platelet Volume 8.4 fL (7.0-11.0); Mono # (Auto) 0.8 th/mm3 (0.0-0.9); Mono % (Auto) 7.7 % (0.0-8.0); Neut # (Auto) 7.7 th/mm3 (1.8-7.7); Neut % (Auto) 78.7 % (16.0-70.0); Platelet Count 166 th/mm3 (150-450); Red Blood Count 4.22 mil/mm3 (4.50-5.90); Red Cell Distribution Width 14.1 % (11.6-17.2); White Blood Count 9.8 th/mm3 (4.0-11.0)
[2018-01-03 07:51] LABS: Anion Gap 9 meq/L (5-15); Blood Urea Nitrogen 4 mg/dL (7-18); Calcium 8.8 mg/dL (8.5-10.1); Carbon Dioxide 27.7 meq/L (21.0-32.0); Chloride 101 meq/L (98-107); Glomerular Filtration Rate Greater Than 89 mL/min (>89); Glucose,Random 127 mg/dL (74-106); Potassium 3.6 meq/L (3.5-5.1); Sodium 138 meq/L (136-145)
--- NOTE | 2018-01-03 09:49 | ECG ---
Date Performed: 01/03/2018 Time Performed: 06:33:33 PTAGE: 47 years EKG: Sinus rhythm NORMAL ECG NO PREVIOUS TRACING DOCTOR: Anu Pizarro Interpretating Date/Time 01/03/2018 09:48:32
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
[2018-01-03 11:42] VITALS: BP 172/90; PULSE 90; TEMP 98.2; O2SAT 97
== END 2018-01-03 12:42 | disposition home or self-care (01) ==
LOC: NEPE 01:47 → NEDA 01:47 → NEPHCDU 10:30
PROVIDERS: ADMIT Internal Medicine; ATTEND Internal Medicine